=== PATIENT | female | born 1980 | race Caucasian/White ===

== ENCOUNTER 2017-06-04 14:37 | Inpatient (IN) | payer BC ==
[2017-06-04] MEDS ORDERED: Nalbuphine 20 MG/1 ML Amp IVPUSH PRN (15:04)
[2017-06-04] MEDS ORDERED: Sodium Chloride 0.9% 10 ML Syringe FLUSH PRN (15:04)
[2017-06-04] MEDS ORDERED: Ampicillin 2 GM in Sodium Chloride 0.9% 100 ML IV ONE (15:04)
[2017-06-04] MEDS ORDERED: Oxytocin/Lactated Ringers 10 UNIT/1,000 ML BAG IV SCH (15:15)
[2017-06-04] MEDS ORDERED: diphenhydrAMINE 50 MG/ML SDV IVPUSH PRN (15:46)
[2017-06-04] MEDS ORDERED: fentaNYL 100 MCG/2 ML SDV EPIDUR PRN (15:46)
[2017-06-04] MEDS ORDERED: ePHEDrine 50 MG/ML SDV IVPUSH PRN (15:46)
--- NOTE | 2017-06-04 15:50 | PCM.LDHP ---
L&D History of Present Illness - General Date of Service: 06/04/17 Admit Problem/Dx: Patient Status Order with Admit Dx/Problem 06/04/17 15:04 Patient Status [ADT] Routine Admission Diagnosis/Problem Admission Diagnosis/Problem 06/04/17 15:40 37-3/7 week intrauterine , active labor, group B strep positive Source of Information: Patient History Limitations: Reports: No Limitations - History of Present Illness Introduction:: Cheli is a 36-year-old 5 para 3013 white female who is presently at 37-3/ 7 weeks gestational age based upon a certain last menstrual period of 09/15/2016 giving an MARKELL of 06/22/2017 who was admitted in active labor and by nurse's evaluation 7-8 cm. She is group B strep positive and IV is started to administer ampicillin per protocol. She started labor last evening but the contractions progressed throughout today. She has intact membranes at this point. Baby is in a vertex presentation. course: Patient was seen for first visit at 10 weeks and 5 days. She made approximately a 20 pound weight gain from 147-167 pounds. Her shows blood pressures are within normal limits however patient reports that in the last 1-2 weeks they have been borderline elevated. She does not think she had any preeclampsia labs done and urinalysis was also not done. She has no history of preeclampsia with previous pregnancies. Laboratory testing shows blood to be A+, antibody screen is negative. First visit showed hemoglobin of 14.3 and platelets of 319,000. Rubella titer is immune. Her hepatitis B surface antigen and HIV asses were negative. Second trimester hemoglobin was 12.8. Platelets second trimester were 319,000. One-hour GTT was 129 mg/dL and by screen at that time was negative. Her group B strep screen done on 05/24/2017 was positive. Her previous pregnancies included 3 vaginal deliveries in the 40-41 week gestational age. Largest baby was 8 lbs. 10 oz. smallest baby was 7 lbs. 3 oz. No problems noted with those pregnancies. She also had a miscarriage in 2005 at 8-0/7 weeks. Allergies: none Medications: 1. Prevacid when necessary 2. vitamins daily Past medical history: 1. Vaginal delivery 3 as stated above prep 2. Miscarriage 1 Past surgical history: Unremarkable Social history: Patient is , lives in [place], works with her ' s construction company. She does not use any significant loss of alcohol, drugs or tobacco. Review of systems: Skin: Negative HEENT: Negative Heart: No chest pain or exercise intolerance Respiratory: No infectious symptoms or asthma Breast: No changes other than those of . GI: Negative : changes [place] skeletal and neurologic: Negative Physical exam: Vital signs are stable, patient is afebrile In general the patient is a well-developed, well-nourished, pleasant female in mild distress secondary to labor pains. She is alert and oriented 3 and appears to be good historian. is with her in labor. Skin is warm and dry without lesions. HEENT, neck and back within normal limits Lungs are clear with good breath sounds in all lung josé. Cardiovascular exam shows regular and rhythm without murmurs. Breast exam is not performed. Patient plans to nurse. She has nursed in the past. Abdomen is protuberant with fundal height consistent with gestational age. Baby is in a vertex presentation by Soham maneuver. The patient's cervix per nursing evaluation is 7-8 cm, 90% effaced, 0 station, bulging bag whittington and anterior. Extremities and neurological exam are within normal limits. Deep tendon reflexes are +2 to +3 bilaterally in the lower extremities. No edema is noted - Related Data Allergies/Adverse Reactions: Allergies Allergy/AdvReac Type Severity Reaction Status Date / Time No Known Allergies Allergy Verified 06/04/17 15:03 H&P Review of Systems - Review of Systems: Review Of Systems: See Below L&D Exam - Exam Exam: See Below - Patient Data Lab Results Last 24 hrs: Laboratory Results - last 24 hr 06/04/17 Range/Units 15:20 WBC 13.94 H (3.98-10.04) K/mm3 RBC 4.30 (3.98-5.22) M/mm3 Hgb 13.6 (11.2-15.7) gm/L Hct 38.8 (34.1-44.9) % MCV 90.2 (79.4-94.8) fl MCH 31.6 (25.6-32.2) pg MCHC 35.1 (32.2-35.5) g/dl RDW Std Deviation 41.8 (36.4-46.3) fL Plt Count 282 (182-369) K/mm3 MPV 9.9 (9.4-12.3) fl Neut % (Auto) 85.4 H (34.0-71.1) % Lymph % (Auto) 9.8 L (19.3-51.7) % [place] % (Auto) 4.0 L (4.7-12.5) % Eos % (Auto) 0.4 L (0.7-5.8) Baso % (Auto) 0.1 (0.1-1.2) % Neut # (Auto) 11.91 H (1.56-6.13) K/mm3 Lymph # (Auto) 1.37 (1.18-3.74) K/mm3 [place] # (Auto) 0.56 H (0.24-0.36) K/mm3 Eos # (Auto) 0.05 (0.04-0.36) K/mm3 Baso # (Auto) 0.01 (0.01-0.08) K/mm3 Result Diagrams: 06/04/17 15:20 Problem List Initiated/Reviewed/Updated: Yes Orders Last 24hrs: Active Orders 24 hr Category Date Time Status Patient Status [ADT] Routine ADT 06/04/17 15:04 Active Activity as Tolerated [RC] PFP Care 06/04/17 15:04 Active Communication Order [RC] ASDIRECTED Care 06/04/17 15:04 Active Heart Tones [RC] ASDIRECTED Care 06/04/17 15:04 Active Notify Provider [RC] PFP Care 06/04/17 15:04 Active Notify Provider [RC] PRN Care 06/04/17 15:04 Active Peripheral IV Care [RC] . DIRECTED Care 06/04/17 15:04 Active Pump Management, Intrathecal [RC] ASDIRECTED Care 06/04/17 15:04 Active Vital Signs [RC] PER UNIT ROUTINE Care 06/04/17 15:04 Active Regular Diet [DIET] Diet 06/04/17 Breakfast Active CBC WITH AUTO DIFF [HEME] Stat Lab 06/04/17 15:20 Results Ampicillin 1 gm Med 06/04/17 19:00 Active Sodium Chloride 0.9% [Normal Saline] 100 ml IV Q4H Lactated Ringers [Ringers, Lactated] 1,000 ml Med 06/04/17 15:15 Active IV ASDIRECTED Nalbuphine [Nubain] Med 06/04/17 15:04 Active 10 mg IVPUSH Q2H PRN Oxytocin/Lactated Ringers [Pitocin in LR 10 Units/1,000 Med 06/04/17 15:15 Active ML] 10 unit in 1,000 ml IV .CONTINUOUS Sodium Chloride 0.9% [Saline Flush] Med 06/04/17 15:04 Active 10 ml FLUSH ASDIRECTED PRN Electronic Heart Tones Ext w TOCO [WOMSER] Ot 06/04/17 15:04 Ordered Routine Electronic Heart Tones Internal [WOMSER] Per Unit Ot 06/04/17 15:04 Ordered Routine Peripheral IV Insertion Adult [OM.PC] Routine Ot 06/04/17 15:04 Ordered Resuscitation Status Routine Resus Stat 06/04/17 15:04 Ordered Medication Orders Ampicillin Sodium 1 gm/ Sodium (Chloride) 100 mls @ 200 mls/hr IV Q4H MARGARET Lactated Ringer's (Ringers, Lactated) 1,000 mls @ 100 mls/hr IV ASDIRECTED MARGARET Oxytocin/Lactated Ringer's (Pitocin In Lr 10 Units/1,000 Ml) 10 unit in 1,000 mls @ 500 mls/hr IV .CONTINUOUS MARGARET Nalbuphine HCl (Nubain) 10 mg IVPUSH Q2H PRN PRN Reason: Pain (moderate 4-6) Sodium Chloride (Saline Flush) 10 ml FLUSH ASDIRECTED PRN PRN Reason: Keep Vein Open Assessment/Plan Comment:: Assessment: 1. 37-3/7 week intrauterine , active labor, advanced cervical dilation of 7-8 cm 2. Group B strep screen positive-no allergies. Patient will receive ampicillin prophylactically. 3. Patient plans to nurse 4. Patient desiring epidural analgesia. Plan: 1. Labor and delivery labs consist of CBC with Platelet count. 2. Ampicillin per protocol for group B strep positive status 3. Support nursing decision and activity 4. Epidural if possible/time permitting
[2017-06-04] MEDS ORDERED: fentaNYL 100 MCG/2 ML SDV ONE (15:52)
[2017-06-04] MEDS ORDERED: Bupivacaine/fentaNYL/NS 100 ML Bag EPIDUR SCH (16:00)
--- NOTE | 2017-06-04 16:10 | PCM.PREANE ---
Preanesthetic Assessment - Anesthesia/Transfusion/Family Hx Anesthesia History: Prior Anesthesia Without Reaction Family History of Anesthesia Reaction: No Transfusion History: No Prior Transfusion(s) - Review of Systems General: No Symptoms Pulmonary: No Symptoms Cardiovascular: No Symptoms Gastrointestinal: No Symptoms Neurological: No Symptoms Other: Reports: None - Physical Assessment Pulse: 90 Blood Pressure: 131/86 Vital Signs: Last Vital Signs Temp Pulse 90 06/04/17 15:30 Resp BP 131/86 06/04/17 15:30 Pulse Ox ASA Class: 2 Mental Status: Alert & Oriented x3 Airway Class: Mallampati = 1 Dentition: Reports: Normal Dentition Thyro-Mental Finger Breadths: 3 Mouth Opening Finger Breadths: 3 ROM/Head Extension: Full Lungs: Clear to Auscultation, Normal Respiratory Effort Cardiovascular: Regular Rate, Regular Rhythm - Lab Values: Laboratory Last Values WBC 13.94 K/mm3 (3.98-10.04) H 06/04/17 15:20 RBC 4.30 M/mm3 (3.98-5.22) 06/04/17 15:20 Hgb 13.6 gm/L (11.2-15.7) 06/04/17 15:20 Hct 38.8 % (34.1-44.9) 06/04/17 15:20 MCV 90.2 fl (79.4-94.8) 06/04/17 15:20 MCH 31.6 pg (25.6-32.2) 06/04/17 15:20 MCHC 35.1 g/dl (32.2-35.5) 06/04/17 15:20 RDW Std Deviation 41.8 fL (36.4-46.3) 06/04/17 15:20 Plt Count 282 K/mm3 (182-369) 06/04/17 15:20 MPV 9.9 fl (9.4-12.3) 06/04/17 15:20 Neut % (Auto) 85.4 % (34.0-71.1) H 06/04/17 15:20 Lymph % (Auto) 9.8 % (19.3-51.7) L 06/04/17 15:20 [place] % (Auto) 4.0 % (4.7-12.5) L 06/04/17 15:20 Eos % (Auto) 0.4 (0.7-5.8) L 06/04/17 15:20 Baso % (Auto) 0.1 % (0.1-1.2) 06/04/17 15:20 Neut # (Auto) 11.91 K/mm3 (1.56-6.13) H 06/04/17 15:20 Lymph # (Auto) 1.37 K/mm3 (1.18-3.74) 06/04/17 15:20 [place] # (Auto) 0.56 K/mm3 (0.24-0.36) H 06/04/17 15:20 Eos # (Auto) 0.05 K/mm3 (0.04-0.36) 06/04/17 15:20 Baso # (Auto) 0.01 K/mm3 (0.01-0.08) 06/04/17 15:20 - Allergies Allergies/Adverse Reactions: Allergies Allergy/AdvReac Type Severity Reaction Status Date / Time No Known Allergies Allergy Verified 06/04/17 15:03 - Blood Blood Available: No - Acknowledgements Anesthesia Type Planned: Epidural Pt an Appropriate Candidate for the Planned Anesthesia: Yes Alternatives and Risks of Anesthesia Discussed w Pt/Guardian: Yes Pt/Guardian Understands and Agrees with Anesthesia Plan: Yes PreAnesthesia Questionnaire - Past Health History Medical/Surgical History: Denies Medical/Surgical History (pancreatits history) Cardiovascular History: Reports: None Respiratory History: Reports: None Gastrointestinal History: Reports: None : 5 Para: 3 - Past Surgical History GI Surgical History: Reports: EGD - History Comment History Comment: vits for home meds - SUBSTANCE USE Smoking Status *Q: Never Smoker Tobacco Use Within Last Twelve Months: No Second Hand Smoke Exposure: No Days Per Week of Alcohol Use: 0 Recreational Drug Use History: No - CURRENT (IN HOUSE) MEDS Current Meds: Current Medications Diphenhydramine HCl (Benadryl) 25 mg IVPUSH Q6H PRN PRN Reason: pruritis Ephedrine Sulfate (Ephedrine Sulfate) 5 mg IVPUSH ASDIRECTED PRN PRN Reason: Hypotension Fentanyl (Sublimaze) 100 mcg EPIDUR Q3H PRN PRN Reason: Pain Last Admin: 06/04/17 16:05 Dose: 100 mcg Fentanyl/Bupivacaine HCl (Fentanyl/Bupivacaine/Ns 2 Mcg-0.125% 100 Ml) 100 ml EPIDUR ASDIRECTED MARGARET Last Admin: 06/04/17 16:04 Dose: 100 ml Ampicillin Sodium 1 gm/ Sodium (Chloride) 100 mls @ 200 mls/hr IV Q4H MARGARET Lactated Ringer's (Ringers, Lactated) 1,000 mls @ 100 mls/hr IV ASDIRECTED MARGARET Oxytocin/Lactated Ringer's (Pitocin In Lr 10 Units/1,000 Ml) 10 unit in 1,000 mls @ 500 mls/hr IV .CONTINUOUS MARGARET Nalbuphine HCl (Nubain) 10 mg IVPUSH Q2H PRN PRN Reason: Pain (moderate 4-6) Sodium Chloride (Saline Flush) 10 ml FLUSH ASDIRECTED PRN PRN Reason: Keep Vein Open Discontinued Medications Fentanyl (Sublimaze) Confirm Administered Dose 100 mcg .ROUTE .STK-MED ONE Stop: 06/04/17 15:53 Ampicillin Sodium 2 gm/ Sodium (Chloride) 100 mls @ 200 mls/hr IV ONETIME ONE Stop: 06/04/17 15:33
[2017-06-04] MEDS: Lactated Ringers 1,000 ML IV SCH ×2 (17:21→17:22)
[2017-06-04] MEDS ORDERED: Docusate Sodium 100 MG Cap PO PRN (17:24)
[2017-06-04] MEDS ORDERED: Ibuprofen 600 MG Tab PO PRN (17:24)
[2017-06-04] MEDS ORDERED: Acetaminophen 325 MG Tab PO PRN (17:24)
[2017-06-04] MEDS ORDERED: Benzocaine/Menthol 20%-0.5% Spray 56 GM Canister TOP PRN (17:24)
[2017-06-04] MEDS ORDERED: Lanolin 100% Cream 7 GM Tube TOP PRN (17:24)
[2017-06-04] MEDS ORDERED: Witch Hazel Medicated Pads 100/Jar TOP PRN (17:24)
--- NOTE | 2017-06-04 17:25 | PCM.SN ---
- Free Text/Narrative Note: Cheli is a 36-year-old 5 para 4014 white female at 37-3/7 weeks gestational age with an MARKELL of 06/22/2017 who was admitted on the afternoon of in active labor. She is noted to be 7-8 cm dilated upon admission with a bulging bag of whittington. She group B strep positive and was given ampicillin prophylactically per protocol. She had an epidural placed. At 1702 hrs. patient achieved complete cervical dilation and delivered a viable, latham, male with Apgars of 8 and 9, weight of 5 pounds 14.9 ounces (2690 g), 19.0 inches in length in a left occiput anterior position over an intact perineum. The baby was placed on mom's abdomen. The nose and mouth were bulb suctioned. The cord was clamped 2 and then was cut by the father of the baby. Pitocin was administered IV to increase tone and decrease potential for bleeding. The placenta delivered in a [place] presentation at 1709 hours. It appeared intact and complete. It was discarded per patient desire. The patient had no perineal or vaginal lacerations. Estimated blood loss was 100 mL. Patient does plan to nurse. Condition: Good
[2017-06-04] MEDS ORDERED: Ampicillin 1 GM in Sodium Chloride 0.9% 100 ML IV SCH (19:00)
[2017-06-04] MEDS ORDERED: Bupivacaine 0.25% 10 ML SDV ONE (22:22)
--- NOTE | 2017-06-05 07:44 | PCM48HPAN ---
Post Anesthesia Note - EVALUATION WITHIN 48HRS OF ANESTHETIC Vital Signs in Normal Range: Yes Patient Participated in Evaluation: Yes Respiratory Function Stable: Yes Airway Patent: Yes Cardiovascular Function Stable: Yes Hydration Status Stable: Yes Pain Control Satisfactory: Yes Nausea and Vomiting Control Satisfactory: Yes Mental Status Recovered: Yes
--- NOTE | 2017-06-05 07:57 | PCM.SN ---
- Free Text/Narrative Note: day one: Patient doing well. Minimal lochia. Voiding well, nursing without problems. She is ambulating without concerns. Patient is afebrile, vital signs stable. Abdomen is flat, soft, nontender with uterus just below the umbilicus. Uterus is firm, nontender. Extremities are without significant edema or discomfort. Hemoglobin is 13.0, hematocrit is 37.6, white blood count is 12.36, platelets are 240,000. Assessment: day 1-good recovery Plan: routine cares-home soon.
[2017-06-06 04:14] VITALS: BP 121/78
--- NOTE | 2017-06-06 06:40 | PCM.DCSUM1 ---
Discharge Summary - Hospital Course Free Text/Narrative:: Cheli is a 36-year-old 5 para 4014 white female at 37-3/7 weeks gestational age with an MARKELL of 06/22/2017 who was admitted on the afternoon of in active labor. She is noted to be 7-8 cm dilated upon admission with a bulging bag of whittington. She group B strep positive and was given ampicillin prophylactically per protocol. She had an epidural placed. At 1702 hrs. patient achieved complete cervical dilation and delivered a viable, latham, male infant with Apgars of 8 and 9, weight of 5 pounds 14.9 ounces (2690 g), 19.0 inches in length in a left occiput anterior position over an intact perineum. The baby was placed on mom's abdomen. The nose and mouth were bulb suctioned. The cord was clamped 2 and then was cut by the father of the baby. Pitocin was administered IV to increase tone and decrease potential for bleeding. The placenta delivered in a [place] presentation at 1709 hours. It appeared intact and complete. It was discarded per patient desire. The patient had no perineal or vaginal lacerations. Estimated blood loss was 100 mL. Patient does plan to nurse. patient has done well. She has a normal course of recovery. Vital signs were stable, patient been afebrile. She is nursing well, voiding without problems and ambulating without concerns. Follow-up CBC was within normal limits for the period. Patient is desiring discharge home. - Discharge Data Discharge Date: 06/06/17 Discharge Disposition: Home, Self-Care 01 Condition: Good - Patient Instructions Diet: Regular Diet as Tolerated (Nursing diet with increase calories and calcium as recommended) Activity: As Tolerated (No intercourse or tampons until bleeding resolves) Driving: May Drive Today Showering/Bathing: May Shower (May take a bath) Notify Provider of: Fever, Increased Pain, Swelling and Redness, Nausea and/or Vomiting - Discharge Plan Prescriptions/Med Rec: PNV95/Ferrous Fumarate/FA [Prenavite Tablet] 1 each PO DAILY #100 tablet Home Medications: Home Meds Ibuprofen [IJD: Ibuprofen] 600 mg PO Q4H PRN #30 tablet 06/06/17 [Rx] PNV95/Ferrous Fumarate/FA [Prenavite Tablet] 1 each PO DAILY #100 tablet [Rx] Referrals: Leticia Richards MD [Physician] - (Return to clinicDr. Richards2 weeks) - Discharge Summary/Plan Comment DC Time >30 min.: No Discharge Summary/Plan Comment: Discharge instructions: 1. Discharge home 2. Regular, high fiber, nursing diet increased calcium and calories is recommended. 3. Activity and follow-up discussed in detail with patient. 4. Medications per home medication list was printed, discusses and given to the patient. 5. Precautions given concern increased pain, bleeding, temperature, signs/ symptoms of DVT/PE. 6. Return to clinic-Dr. Richards-2 weeks. Condition: Term -delivered new care Condition: Good - Patient Data Vitals - Most Recent: Last Vital Signs Temp 36.1 C 06/06/17 03:44 Pulse 74 06/06/17 03:44 Resp 16 06/06/17 03:44 BP 121/78 06/06/17 03:44 Pulse Ox 100 06/06/17 03:44 Weight - Most Recent: 77.111 kg I&O - Last 24 hours: Intake & Output 06/05/17 06/05/17 06/06/17 14:59 22:59 06:59 Intake Total 180 Balance 180 Lab Results - Last 24 hrs: Laboratory Results - last 24 hr 06/05/17 Range/Units 06:45 WBC 12.36 H (3.98-10.04) K/mm3 RBC 4.15 (3.98-5.22) M/mm3 Hgb 13.0 (11.2-15.7) gm/L Hct 37.6 (34.1-44.9) % MCV 90.6 (79.4-94.8) fl MCH 31.3 (25.6-32.2) pg MCHC 34.6 (32.2-35.5) g/dl RDW Std Deviation 42.1 (36.4-46.3) fL Plt Count 240 (182-369) K/mm3 MPV 10.0 (9.4-12.3) fl Med Orders - Current: Current Medications Acetaminophen (Tylenol) 650 mg PO Q4H PRN PRN Reason: mild pain or fever Benzocaine/Menthol (Dermoplast Pain Relief [place]) 0 gm TOP ASDIRECTED PRN PRN Reason: Perineal Comfort Measure Last Admin: 06/04/17 18:01 Dose: 56 gm Docusate Sodium (Colace) 100 mg PO BID PRN PRN Reason: Constipation Emollient Ointment (Lansinoh Hpa) 0 gm TOP ASDIRECTED PRN PRN Reason: Sore Nipples Ibuprofen (Motrin) 600 mg PO Q4H PRN PRN Reason: Mild pain or fever Last Admin: 06/05/17 02:34 Dose: 600 mg Witch Sybil (Tucks) 1 pad TOP ASDIRECTED PRN PRN Reason: Hemorrhoid pain Last Admin: 06/04/17 18:01 Dose: 1 pad Discontinued Medications Bupivacaine HCl (Sensorcaine-Mpf 0.25%) 10 ml .ROUTE .STK-MED ONE Stop: 06/04/17 22:23 Diphenhydramine HCl (Benadryl) 25 mg IVPUSH Q6H PRN PRN Reason: pruritis Ephedrine Sulfate (Ephedrine Sulfate) 5 mg IVPUSH ASDIRECTED PRN PRN Reason: Hypotension Fentanyl (Sublimaze) 100 mcg EPIDUR Q3H PRN PRN Reason: Pain Last Admin: 06/04/17 16:05 Dose: 100 mcg Fentanyl (Sublimaze) Confirm Administered Dose 100 mcg .ROUTE .STK-MED ONE Stop: 06/04/17 15:53 Last Admin: 06/04/17 18:17 Dose: Not Given Fentanyl/Bupivacaine HCl (Fentanyl/Bupivacaine/Ns 2 Mcg-0.125% 100 Ml) 100 ml EPIDUR ASDIRECTED [facility] Last Admin: 06/04/17 16:04 Dose: 100 ml Ampicillin Sodium 2 gm/ Sodium (Chloride) 100 mls @ 200 mls/hr IV ONETIME ONE Stop: 06/04/17 15:33 Last Admin: 06/04/17 15:00 Dose: 200 mls/hr Ampicillin Sodium 1 gm/ Sodium (Chloride) 100 mls @ 200 mls/hr IV Q4H [facility] Lactated Ringer's (Ringers, Lactated) 1,000 mls @ 100 mls/hr IV ASDIRECTED [facility] Last Admin: 06/04/17 17:22 Dose: 999 mls/hr Oxytocin/Lactated Ringer's (Pitocin In Lr 10 Units/1,000 Ml) 10 unit in 1,000 mls @ 500 mls/hr IV .CONTINUOUS MARGARET Last Admin: 06/04/17 17:23 Dose: 500 mls/hr Nalbuphine HCl (Nubain) 10 mg IVPUSH Q2H PRN PRN Reason: Pain (moderate 4-6) Sodium Chloride (Saline Flush) 10 ml FLUSH ASDIRECTED PRN PRN Reason: Keep Vein Open *Q Meaningful Use (DIS) - VTE *Q VTE Criteria *Q: - Stroke *Q Stroke Criteria *Q: - AMI *Q AMI Criteria *Q:
== END 2017-06-06 15:35 | disposition home or self-care (01) | DRG 560 ==
LOC: JD.OBCHECK 14:37 → JD.OB 14:37 → JD.OBCHECK 15:03 → JD.OB 15:04 → OBSVTOIN 17:02
PROVIDERS: ADMIT Obstetrics & Gynecology; ATTEND Obstetrics & Gynecology
PROC: 10E0XZZ Delivery of Products of Conception, External Approach (ICD-10-PCS; principal; 2017-06-04)
PROC: 10907ZC Drainage of Amniotic Fluid, Therapeutic from Products of Conception, Via Natural or Artificial Opening (ICD-10-PCS; 2017-06-04)
PROC: 00HU33Z Insertion of Infusion Device into Spinal Canal, Percutaneous Approach (ICD-10-PCS; 2017-06-04)
PROC: 3E0R3CZ (ICD-10-PCS; 2017-06-04)
DX: O99.824 Streptococcus B carrier state complicating childbirth (principal); Z3A.37 37 weeks gestation of pregnancy; Z37.0 Single live birth
CPT/HCPCS: 01967; 36415; 59409; 85025; 85027; A9270-GY; J0290; J2590; J3010; J7030; J7120